=== PATIENT | female | born 1950 | race Caucasian/White ===

== ENCOUNTER 2020-08-12 18:00 | Emergency (ER) | payer MEDICARE ==
[~2020-08-12] VITALS: Ht 170.2 cm; Wt 75.0 kg
[2020-08-12] MEDS ORDERED: KETOROLAC 30 MG/1 ML IVPush ONE (18:30)
[2020-08-12] MEDS ORDERED: ONDANSETRON 2MG/ML, 2ML IVPush ONE ×2 (18:30→21:30)
[2020-08-12] MEDS ORDERED: SODIUM CHLORIDE FLUSH 10ML SYR IVF ONE (18:30)
[2020-08-12 18:37] LABS: BASOPHILS % (AUTO) 1 % (0-1); EOSINOPHILS % (AUTO) 2 % (1-7); LYMPHOCYTES % (AUTO) 16 % (22-44); MEAN CORPUSCULAR HEMOGLOBIN 29.1 pg (27.0-34.8); MEAN CORPUSCULAR HGB CONC 33.2 g/dL (32.4-35.8); MEAN PLATELET VOLUME 8.9 fL (7.4-10.4); MONOCYTES % (AUTO) 5 % (2-9); NEUTROPHILS % (AUTO) 78 % (42-75); PLATELET COUNT 235 x10^3/uL (130-400); RED BLOOD COUNT 5.15 x10^6/uL (3.82-5.3); RED CELL DISTRIBUTION WIDTH 13.7 % (9.6-15.2)
[2020-08-12 18:38] LABS: MD NO
--- NOTE | 2020-08-12 18:43 | NUR ---
PT BIB EMS FOR LOWER BACK PAIN, INCREASED FREQUENCY URINATING. DENIES CP OR SOB. PAIN STARTED 3 DAYS AGO. WORSENED TODAY.
[2020-08-12 18:52] LABS: ALANINE AMINOTRANSFERASE 21 U/L (12-78); ALBUMIN 3.7 g/dL (3.4-5.0); ANION GAP 8 mmol/L (5-15); CHLORIDE 108 mmol/L (98-107); CREATININE 1.23 mg/dL (0.55-1.02)
[2020-08-12 18:54] LABS: ALKALINE PHOSPHATASE 86 U/L (45-117); BILIRUBIN,TOTAL 0.5 mg/dL (0.2-1.0); TOTAL PROTEIN 7.5 g/dL (6.4-8.2)
--- NOTE | 2020-08-12 18:58 | NUR ---
REPORT TO MELODIE
--- NOTE | 2020-08-12 19:03 | NUR ---
Note undone in EDM - 08/12/20 at 1906 by AGUSTIN PATIENT IN BED REPORTING "EXCRUCIATING PAIN. SOMEONE NEEDS TO COME LOOK AT THIS. I FEEL LIKE IM BEING STABBED". PATIENT RESTLESS IN BED. REPORTING OFF NURSE, NICK GARNICA, ADMINISTERED IV ATIVAN PRIOR TO LEAVING. NO OBVIOUS ABNORMALITIES TO RIGHT ABDOMEN WHERE PATIENT COMPLAINING OF THIS PAIN. LLQ OSTOMY PUTTING OUT GAS AND SOFT STOOL. NO OBVIOUS LEAKING FROM OSTOMY SITE/BAG/APPLIANCE. CALL GARDUNO IN REACH. SAFETY MAINTAINED. WILL CONTINUE TO MONITOR. NO SENSATION TO LEFT LEG AND HAS FOOT DROP. SHE STATES THIS IS BASELINE FROM HER HERNAN CORONEL (KULDEEP). SENSATION TO RLE IS WNL.
--- NOTE | 2020-08-12 19:06 | NUR ---
PATIENT JUST RETURNED FROM XR.
--- NOTE | 2020-08-12 19:06 | NUR ---
LAST NOTE PLACED IN ERROR ON WRONG PATIENT
[2020-08-12] MEDS ORDERED: ONDANSETRON 2MG/ML, 2ML ONE ×2 (19:12→21:32)
[2020-08-12] MEDS ORDERED: MORPHINE SULFATE 4 MG/ML, 1ML ONE ×2 (19:12→21:32)
[2020-08-12] MEDS ORDERED: KETOROLAC 30 MG/1 ML ONE (19:12)
[2020-08-12] MEDS: MORPHINE SULFATE 4 MG/ML, 1ML IVPush PRN ×2 (19:15→21:34)
--- NOTE | 2020-08-12 19:40 | NUR ---
DAY SHIFT UNABLE TO OBTAIN TEMPERATURE. I ATTEMPTED OBTAINING ORAL TEMP X 3 AND AXILLARY X4 USING TWO DIFFERENT THERMOMETERS. I THEN OPTED FOR RECTAL THERMOMETER TRIA AND PATIENT ACCEPTED THIS FORM. FOUND TO BE 94.[address]F RECTALLY[address] DR. GAMBOA NOTIIED. I HAVE ALREADY PLACED PATIENT ON CHIN HUGGER AT 38C. PATIENT RESTING IN BED ON LEFT LATERAL SIDE. CALL GARDUNO IN REACH. SAFETY MAINTAINED
--- NOTE | 2020-08-12 20:19 | NUR ---
PATIENT AMBULATED UP TO BATHROOM WITH STEADY GAIT. UNABLE TO VOID MUCH. BLADDER SCAN POST-VOID ONLY 37mL'S. PATIENT REPORT NAUSEA WHEN AMBULATING. PAIN HAS SUBSIDED. VS REMAIN STABLE ON RA. CHIN ESTRELLAGGER PLACED BACK ON PATIENT AT 32C. CALL GARDUNO IN REACH. VISITOR AT BEDSIDE
[2020-08-12 20:26] LABS: MICROSCOPIC INDICATED
--- NOTE | 2020-08-12 21:30 | NUR ---
PATIENT RESTING IN BED IN NAD. CALL GARDUNO IN REACH. CHIN FLETCHER REMAINS IN PLACE ON LOW PER PATIENT REQUEST. WILL CONTNUE TO MONITOR.
--- NOTE | 2020-08-12 22:41 | NUR ---
DISCHARGE INSTRUCTIONS REVIEWED WITH PATIENT AND S/O AT BEDSIDE. NO FURTHER QUESTIONS AT THIS TIME. IV REMOVED PER DC PROTOCOL. ALL PERSONAL BELONGINGS WITH PATIENT ON DEPARTURE. STEADY GAIT TO LOBBY. PRESCRIPTION HANDED DIRECTLY TO PATIENT. S/O DESIGNATED MANAGER OF PRODUCT TONIGHT. RISKS AND RESTRICTIONS REVIEWED WITH PATIENT. A&OX4 ON DEPARTURE. VS REMAIN STABLE
[2020-08-12 22:43] VITALS: BP 129/51
== END 2020-08-12 22:49 | disposition home or self-care (01) ==
LOC: EDBD 18:00 → ED 18:30
DX: N13.2 Hydronephrosis with renal and ureteral calculous obstruction (principal); R10.2 Pelvic and perineal pain; R30.0 Dysuria; Z88.0 Allergy status to penicillin; Z88.8 Allergy status to other drugs, medicaments and biological substances
CPT/HCPCS: 36415; 74176; 80053; 81001; 83690; 85025; 96374; 96375; 96376; 99284; J1885; J2270; J2405